=== PATIENT | female | born 1945 | race Hispanic/Latino ===

== ENCOUNTER 2016-06-11 12:33 | Outpatient (CLI) | payer MEDICARE ==
--- NOTE | 2016-06-11 13:49 | XRay Report ---
ROUTINE CHEST, TWO VIEWS: HISTORY: Pleurisy, chest pain. The trachea, heart, mediastinal contour, lung sloan and bony thorax are unremarkable. IMPRESSION: No acute cardiopulmonary process.
== END 2016-06-11 12:34 | disposition home or self-care (01) ==
LOC: SPVIMAG 12:33
PROVIDERS: ATTEND Internal Medicine
DX: R09.1 Pleurisy (principal)
CPT/HCPCS: 71020